=== PATIENT | female | born 1990 | race Caucasian/White ===

== ENCOUNTER 2020-08-05 14:00 | Outpatient (REF) | payer OTHER, SELFPAY ==
--- NOTE | 2020-08-05 | US_ITS ---
EXAMINATION: US OBSTETRICAL CLINICAL INFORMATION: 29-year-old at 20.0 weeks of gestation Suspected anomaly COMPARISON: 06/10/2020 TECHNIQUE: Real-time transabdominal ultrasound was performed using C1-5 megahertz transducer. FINDINGS: A single, active, fetus is seen in vertex presentation. The placenta is posterior without previa, and the amniotic fluid volume is wnl. MEASUREMENTS: 1. Biparietal Diameter: 4.4 cm; 19.3 wks 2. Occipital Frontal Diameter: 5.92 cm 3. Head Circumference: 17.4 cm; 20.0 wks 4. Abdominal Circumference: 16.0 cm; 21.2 wks 5. Femur Length: 3.4 cm; 20.5 wks 6. Humerus Length: 3.1 cm; 20.4 wks 7. Tibia Length: 3.01 cm; 21.1 wks 8. Ulna Length: 3.0 cm; the 1.2 wks 9. Lateral ventricle: 0.89 cm 10. Cerebellum: 1.91 cm; 19.5 wks 11. Cisterna Magna: 0.34 cm 12. Nuchal Fold: 3.32 mm 13. Heart Rate: 147 beats per minute Rt ovary: normal Lt ovary: normal Cervical length 4.9 cm on T/A. GESTATIONAL AGE: 1. Established GA: 20.0 wks 2. GA from COUNT INCLUDES THE [facility]: 20.3 wks ESTIMATED DATE OF DELIVERY: 1. Established EDEN: 12/23/2020 2. EDEN from COUNT INCLUDES THE [facility]: 12/20/2020 ANATOMY: The visualized anatomy includes but not limited to: 1. Cranium: Normal 2. Intracranial anatomy: Choroid plexus was suboptimally seen due to position. Cavum septum pellucidi, lateral ventricles, cerebellum, posterior fossa, third and fourth ventricles are within normal limits 3. face: Profile, nose/lips were limited due to position. Lips, orbits were within normal limits 4. Heart: Four-chamber view, ventricular septal evaluation, 3 vessel trachea inside this were suboptimal. LVOT, aortic and ductal arches as well as diaphragm were within normal limits.. 5. Diaphragm: Suboptimal 6. Abdominal wall: Normal 7. Cord Insertion: Normal 8. Spine: Distal sacral spine was suboptimally seen 9. Stomach: Normal size and shape 10. Right Kidney: Suboptimal 11. Left Kidney: Suboptimal 12. 3 vessel cord: Suboptimal 13. Upper extremity: Open hands, fifth digit. 14. Lower extremity: Tibia, fibula, bilateral feet. 15. Bladder: Normal 16. Genitalia: Male, patient aware IMPRESSION: 1. Single, living, intrauterine with appropriate biometry. 2. Limited anatomy due to position. However no abnormalities were seen in visualized anatomy. DISCUSSION: I reviewed today's ultrasound findings. We discussed the limitations of ultrasound in diagnosing aneuploidy and other congenital abnormalities. I reviewed the differences between screening test and diagnostic test. Amniocentesis was discussed and declined. She was informed that the baseline incidence of congenital abnormalities is approximately 3-5%. Not all these conditions are diagnosable in utero. RECOMMENDATIONS: 1. Follow-up in 2 weeks for growth and anatomy. Thank you for allowing me to participate in her care. Visiting time 15 minutes. Majority of this visit was spent reviewing and discussing her care.
== END 2020-08-05 14:01 | disposition home or self-care (01) ==
LOC: HO.US 14:00
PROVIDERS: PCP Pediatrics; Visit Provider Advanced Practice Midwife
DX: Z34.82 Encounter for supervision of other normal pregnancy, second trimester (principal)
CPT/HCPCS: 76811

== ENCOUNTER → 2020-08-11 09:22 | Outpatient (BNVA) | payer OTHER, SELFPAY | PROVIDERS: PCP Pediatrics; Referring Provider Pediatrics; Visit Provider Advanced Practice Midwife | DX: O99.891 Other specified diseases and conditions complicating pregnancy (principal); R82.71 Bacteriuria; O09.292 Supervision of pregnancy with other poor reproductive or obstetric history, second trimester; O34.219 Maternal care for unspecified type scar from previous cesarean delivery; Z3A.20 20 weeks gestation of pregnancy | CPT/HCPCS: 99212 ==

== ENCOUNTER 2020-08-19 13:29 | Outpatient (REF) | payer OTHER, SELFPAY ==
--- NOTE | 2020-08-19 13:42 | US_ITS ---
EXAMINATION: OBSTETRICAL ULTRASOUND, Follow up HISTORY: 29-year-old at 22.0 weeks of gestation Follow-up anatomy COMPARISON: 08/05/2020 TECHNIQUE: Real time transabdominal imaging with color and M-mode Doppler. PRESENTATION: Transverse PLACENTA LOCATION: Posterior AMNIOTIC FLUID: Normal MEASUREMENTS: 1. Biparietal Diameter: 5.11 cm; 21.4 wks 2. Head Circumference: 19.5 cm; 21.5 wks 3. Abdominal Circumference: 17.8 cm; 22.5 wks 4. Femur Length: 3.9 cm; 22.4 wks 5. Heart Rate: 155 beats per minute WEIGHT: Estimated weight is 507 grams (1 lbs 2 oz) -- 69 %. Normal views of choroids, lateral cerebral ventricle, profile, nose/lips, 4ch view, ventricular septum, LVOT, RVOT, situs, 3 vessel trachea view, bilateral kidneys, 3 vessel cord, abdominal CORD insertion, and spine. GESTATIONAL AGE: 1. Established GA: 22.0 wks 2. GA from AUA: 22.1 wks ESTIMATED DATE OF DELIVERY: 1. Established EDEN: 12/23/2020 2. EDEN from AUA: 12/22/2020 IMPRESSION: 1. A single fetus with appropriate interval growth. 2. Previously limited views of the anatomy were seen as listed above. No abnormalities were noted in visualized anatomy. 3. This completes the survey. I reviewed the limitations of ultrasound in diagnosing aneuploidy and other congenital abnormalities. Amniocentesis was again reviewed and she declined. She was informed that the baseline instance of congenital abnormalities and defects in the general population is approximately 3-5%. Not all these conditions are diagnosable in utero. RECOMMENDATIONS: 1. f/u PRN Thank you very much for this referral. Visiting time 15 minutes. Majority of this visit was spent reviewing the ultrasound findings as well as her care.
== END 2020-08-19 13:30 | disposition home or self-care (01) ==
LOC: HO.US 13:29
PROVIDERS: Visit Provider Advanced Practice Midwife
DX: Z34.80 Encounter for supervision of other normal pregnancy, unspecified trimester (principal)
CPT/HCPCS: 76816

== ENCOUNTER 2020-08-31 08:54 | Outpatient (REF) | payer OTHER, SELFPAY ==
[2020-08-31 09:17] LABS: COVID-19 Test Negative (Negative)
== END 2020-08-31 08:55 | disposition home or self-care (01) ==
LOC: HO.LAB 08:54
PROVIDERS: Visit Provider Internal Medicine
DX: Z20.828 Contact with and (suspected) exposure to other viral communicable diseases (principal)
CPT/HCPCS: 87635

== ENCOUNTER → 2020-09-05 09:51 | Outpatient (BNVA) | payer OTHER, SELFPAY | PROVIDERS: PCP Pediatrics; Visit Provider Advanced Practice Midwife | DX: O26.892 Other specified pregnancy related conditions, second trimester (principal); R51.9 Headache, unspecified; O09.292 Supervision of pregnancy with other poor reproductive or obstetric history, second trimester; O34.219 Maternal care for unspecified type scar from previous cesarean delivery; Z3A.24 24 weeks gestation of pregnancy; Z79.82 Long term (current) use of aspirin | CPT/HCPCS: 99212 ==

== ENCOUNTER 2020-09-28 06:34 | Outpatient (REF) | payer OTHER, SELFPAY ==
[2020-09-28 08:23] LABS: Hematocrit 37.3 % (37-47); Hemoglobin 12.2 g/dl (12.0-16.0); Mean Corpuscular HGB Conc 32.7 g/dl (31.0-35.0); Mean Corpuscular Hemoglobin 29.8 pg (27.0-33.0); Mean Corpuscular Volume 91.2 fL (80-98); Mean Platelet Volume 11.4 fL (9.4-12.3); Platelet Count 220 X10*3/uL (160-400); Red Blood Count 4.09 X10*6/uL (4.20-5.50); Red Cell Distribution Width 13.5 % (11.0-16.0); White Blood Count 10.4 X10*3/uL (4.8-10.8)
[2020-09-28 08:48] LABS: Glucose Fasting 84 mg/dL (60-99)
[2020-09-28 08:54] LABS: Alanine Aminotransferase 10 U/L (0-31); Aspartate Amino Transferase 9 U/L (5-31); Blood Urea Nitrogen 4 mg/dL (9-16)
[2020-09-28 09:04] LABS: HIV AB/AG Nonreactive (Nonreactive); HIV Num 1 0.15 S/CO (0.00-0.99)
[2020-09-28 09:06] LABS: Syphilis Screen Nonreactive (Nonreactive)
[2020-09-28 09:31] LABS: Glucose 1 Hour 146 mg/dL
[2020-09-28 09:41] LABS: Creatinine Urine 58.91 mg/dL; Total Protein Urine Random < 7 mg/dL (<12)
== END 2020-09-28 06:35 | disposition home or self-care (01) ==
LOC: HO.LAB 06:34
PROVIDERS: PCP Pediatrics; Visit Provider Advanced Practice Midwife
DX: O99.891 Other specified diseases and conditions complicating pregnancy (principal); R82.71 Bacteriuria; Z3A.00 Weeks of gestation of pregnancy not specified
CPT/HCPCS: 36415; 82951; 84156; 84450; 84460; 84520; 85027; 86780; 87086; 87389

== ENCOUNTER → 2020-10-04 10:45 | Outpatient (BNVA) | payer OTHER, SELFPAY | PROVIDERS: Visit Provider Obstetrics & Gynecology | DX: O09.623 Supervision of young multigravida, third trimester (principal); O09.299 Supervision of pregnancy with other poor reproductive or obstetric history, unspecified trimester; O99.810 Abnormal glucose complicating pregnancy | CPT/HCPCS: 90715; 99212 ==

== ENCOUNTER → 2020-10-31 13:37 | Outpatient (BNVA) | payer OTHER, SELFPAY | PROVIDERS: PCP Pediatrics; Visit Provider Advanced Practice Midwife | DX: O99.810 Abnormal glucose complicating pregnancy (principal); O09.299 Supervision of pregnancy with other poor reproductive or obstetric history, unspecified trimester | CPT/HCPCS: 81003; 99212 ==

== ENCOUNTER 2020-11-11 08:27 | Outpatient (REF) | payer OTHER, SELFPAY ==
--- NOTE | 2020-11-11 08:31 | US_ITS ---
EXAMINATION: OBSTETRICAL ULTRASOUND, Follow up HISTORY: 29-year-old at that 34.0 weeks of gestation GDM A1 Size date discrepancy High BMI History of section COMPARISON: 08/19/2020 TECHNIQUE: Real time transabdominal imaging with color and M-mode Doppler. PRESENTATION: Vertex PLACENTA LOCATION: Posterior without previa AMNIOTIC FLUID: PAMELA 22.5 MEASUREMENTS: 1. Biparietal Diameter: 8.1 cm; 32.5 wks 2. Head Circumference: 31.2 cm; 35.0 wks 3. Abdominal Circumference: 32.95 cm; 37.0 wks 4. Femur Length: 6.7 cm; 34.2 wks 5. Heart Rate: 163 beats per minute WEIGHT: EFW: 2707 grams (5 lbs 15 oz) -- 86 %. BIOPHYSICAL PROFILE: Motion: 2 Tone: 2 Breathin Amniotic Fluid: 2 Total score: 8/8 GESTATIONAL AGE: 1. Established GA: 34.0 wks 2. GA from A: 34.6 wks ESTIMATED DATE OF DELIVERY: 1. Established EDEN: 12/23/2020 2. EDEN from A: 12/17/2020 US/US OB follow up IMPRESSION: 1. A single active fetus is in vertex presentation 2. Size equals dates 3. Amniotic fluid volume is near the upper end of normal 4. Reassuring biophysical profile I informed the patient that the EFW corresponds to 86th percentile. While this is not predictive of macrosomia at term, the PAMELA of 22.5 is also at the upper limit of normal. She is currently on GDM diet. Reports that her fasting values are in the 80s. 2 hour postprandials are in the low 100s. She is scheduled for repeat section on 12/16/2020. I discussed with her the increased risk of hypoglycemia after delivery if her serum glucose control is suboptimal. Thank you very much for this referral. Visiting time 20 minutes. (4,10,6)
== END 2020-11-11 08:28 | disposition home or self-care (01) ==
LOC: HO.US 08:27
PROVIDERS: Visit Provider Obstetrics & Gynecology
DX: O09.299 Supervision of pregnancy with other poor reproductive or obstetric history, unspecified trimester (principal)
CPT/HCPCS: 76816

== ENCOUNTER 2020-11-18 08:55 | Outpatient (REF) | payer OTHER, SELFPAY ==
--- NOTE | 2020-11-18 08:58 | US_ITS ---
EXAMINATION: US OBSTETRICAL (BIOPHYSICAL PROFILE) CLINICAL INFORMATION: 29-year-old at the 35.0 weeks of gestation GDM A1 History of preeclampsia Labile blood pressure High BMI COMPARISON: 11/11/2020 TECHNIQUE: Biophysical profile is performed over 30 minutes with assessment of breathing, gross body movement, tone, and qualitative amniotic fluid volume. FINDINGS: POSITION: Vertex PLACENTA: Posterior without previa AMNIOTIC FLUID INDEX: 16.6 cm CARDIAC ACTIVITY: 146 beats per minute BIOPHYSICAL PROFILE: Motion: 2 Tone: 2 Breathin Amniotic Fluid: 2 The total biophysical score is 8/8 US/US OB limited IMPRESSION: 1. Single intrauterine gestation in vertex position. 2. Reassuring BPP and PAMELA BPP and PAMELA are within normal limits. She informs me that her glycemic control is within the target range on diet. The estimated weight last week was 5 lbs.15 oz. corresponding to 86th percentile. According to the patient, her blood pressure is borderline and is approaching 140/90. Addition there is small amount of protein in her urine. I informed her that if she meets the criteria for preeclampsia, delivery may be indicated. However if she has gestational hypertension only and her blood pressure can be managed, expectant management until 37 weeks is reasonable. Continue weekly BPP and NST 2 times per week. Thank you for allowing me to participate in her care. Total time: 30 minutes (8,15,7)
== END 2020-11-18 08:56 | disposition home or self-care (01) ==
LOC: HO.US 08:55
PROVIDERS: Visit Provider Obstetrics & Gynecology
DX: O99.810 Abnormal glucose complicating pregnancy (principal); O34.219 Maternal care for unspecified type scar from previous cesarean delivery; Z87.59 Personal history of other complications of pregnancy, childbirth and the puerperium; Z3A.35 35 weeks gestation of pregnancy
CPT/HCPCS: 76815; 81003; 99212

== ENCOUNTER 2020-11-25 10:31 | Outpatient (REF) | payer OTHER, SELFPAY ==
--- NOTE | 2020-11-25 10:36 | US_ITS ---
EXAMINATION: OBSTETRICAL ULTRASOUND, Follow up HISTORY: 29-year-old at the 36.0 weeks of gestation GDM A1 High BMI History of preeclampsia COMPARISON: 11/18/2020 TECHNIQUE: Real time transabdominal imaging with color and M-mode Doppler. PRESENTATION: Vertex PLACENTA LOCATION: Posterior AMNIOTIC FLUID: PAMELA 19.7 cm MEASUREMENTS: 1. Biparietal Diameter: 8.72 cm; 35.2 wks 2. Head Circumference: 32.43 cm; 36.5 wks 3. Abdominal Circumference: 32.6 cm; 36.4 wks 4. Femur Length: 7.3 cm; 37.4 wks 5. Heart Rate: 143 beats per minute WEIGHT: EFW: 2993 grams (6 lbs 10 oz) -- 69 %. BIOPHYSICAL PROFILE: Motion: 2 Tone: 2 Breathin Amniotic Fluid: 2 Total score: 8/8 GESTATIONAL AGE: 1. Established GA: 36.0 wks 2. GA from AUA: 36.4 wks ESTIMATED DATE OF DELIVERY: 1. Established EDEN: 12/23/2020 2. EDEN from AUA: 12/19/2020 US/US OB biophysical profile IMPRESSION: 1. The single active fetus is in vertex presentation 2. Size equals dates 3. Reassuring biophysical profile with normal amniotic fluid volume. I reviewed today's ultrasound findings and gave her reassurance. According to her, her fasting values are in the 80s. Majority of her postprandial values are within normal limits. States that her blood pressure this morning was 150 over a. Denies symptoms or signs of severe preeclampsia. She is to repeat her blood pressure later today. Gave her preeclampsia warnings She is scheduled for weekly follow-up. Thank you very much for this referral. Total time 30 (5,15,10) minutes.
[2020-11-25 16:47] LABS: MANUAL DIFF FLAG NO
[2020-11-25 16:51] LABS: Basophils Percent Auto 0.2 % (0-2); Eosinophils Absolute Auto 0.1 X10*3/uL (0.0-0.4); Eosinophils Percent Auto 0.7 % (0-4); Hemoglobin 12.3 g/dl (12.0-16.0); Imm Gran Abs Auto 0.05 X10*3/uL (0.00-0.03); Imm Gran Pct Auto 0.4 % (0.0-0.4); Lymphocytes Absolute Auto 2.2 X10*3/uL (1.2-4.9); Lymphocytes Percent Auto 19.9 % (20-40); Mean Corpuscular HGB Conc 32.4 g/dl (31.0-35.0); Mean Corpuscular Hemoglobin 29.6 pg (27.0-33.0); Mean Corpuscular Volume 91.3 fL (80-98); Mean Platelet Volume 11.7 fL (9.4-12.3); Monocytes Absolute Auto 1.2 X10*3/uL (0.1-1.2); Neutrophils Absolute Auto 7.6 X10*3/uL (2.0-8.3); Neutrophils Percent Auto 67.8 % (45-73); Platelet Count 195 X10*3/uL (160-400); Red Blood Count 4.16 X10*6/uL (4.20-5.50); Red Cell Distribution Width 13.4 % (11.0-16.0); White Blood Count 11.1 X10*3/uL (4.8-10.8)
[2020-11-25 17:11] LABS: Alanine Aminotransferase 10 U/L (0-31); Albumin Level 3.7 g/dL (3.5-5.0); Alkaline Phosphatase 84 U/L (39-117); Anion Gap 14 (12-20); Aspartate Amino Transferase 12 U/L (5-31); Bilirubin Total 0.3 mg/dL (0.0-1.0); Blood Urea Nitrogen 6 mg/dL (9-16); Calcium 8.9 mg/dL (8.4-10.2); Carbon Dioxide 20 mmol/L (22-29); Chloride 107 mmol/L (96-108); Estimated Glomerular Filt Rate > 60; Glucose Random 71 mg/dL (60-115); Potassium 4.1 mmol/l (3.3-5.1); Sodium 137 mmol/L (135-145); Total Protein 6.6 g/dL (6.5-8.0)
[2020-11-25 17:20] LABS: Creatinine Urine 128.65 mg/dL; Protein/Creatinine Ratio, Ur 0.09 (<0.2); Total Protein Urine Random 12 mg/dL (<12)
== END 2020-11-25 10:32 | disposition home or self-care (01) ==
LOC: HO.US 10:31
PROVIDERS: PCP Pediatrics; Visit Provider Obstetrics & Gynecology
DX: O99.810 Abnormal glucose complicating pregnancy (principal); O16.3 Unspecified maternal hypertension, third trimester; Z3A.36 36 weeks gestation of pregnancy; Z87.59 Personal history of other complications of pregnancy, childbirth and the puerperium
CPT/HCPCS: 36415; 59025; 76819; 80053; 81003; 84156; 85025; 99212

== ENCOUNTER → 2020-11-29 15:04 | Outpatient (BNVA) | payer OTHER, SELFPAY | PROVIDERS: PCP Pediatrics; Visit Provider Advanced Practice Midwife | DX: O09.623 Supervision of young multigravida, third trimester (principal) | CPT/HCPCS: 59025; 81003; 99212 ==

== ENCOUNTER → 2020-12-09 10:31 | Outpatient (BNVA) | payer OTHER, SELFPAY | PROVIDERS: Visit Provider Obstetrics & Gynecology ==

== ENCOUNTER 2021-01-13 10:24 | Outpatient (REF) | payer OTHER, SELFPAY ==
[2021-01-17 16:42] LABS: HPV mRNA E6/E7 rflx Not Detected (Not Detected)
== END 2021-01-13 10:25 | disposition home or self-care (01) ==
LOC: HO.LAB 10:24
PROVIDERS: Visit Provider Advanced Practice Midwife
DX: Z39.2 Encounter for routine postpartum follow-up (principal)
CPT/HCPCS: 36415; 87624; 88142

== ENCOUNTER → 2021-10-17 11:03 | Outpatient (BNVA) | payer OTHER, SELFPAY | PROVIDERS: PCP Pediatrics; Visit Provider Advanced Practice Midwife ==

== ENCOUNTER → 2021-10-24 15:43 | Outpatient (BNVA) | payer OTHER, SELFPAY | PROVIDERS: PCP Pediatrics; Visit Provider Obstetrics & Gynecology ==

== ENCOUNTER 2021-11-02 05:51 | Outpatient (REF) | payer OTHER, SELFPAY ==
[2021-11-02 06:23] LABS: COVID-19 Test Negative (Negative)
== END 2021-11-02 05:52 | disposition home or self-care (01) ==
LOC: HO.LAB 05:51
PROVIDERS: Visit Provider Internal Medicine
DX: Z20.822 Contact with and (suspected) exposure to COVID-19 (principal)
CPT/HCPCS: 36415; 87635

== ENCOUNTER → 2021-11-20 13:19 | Outpatient (BNVA) | payer OTHER, SELFPAY | PROVIDERS: PCP Pediatrics; Visit Provider Obstetrics & Gynecology | DX: Z30.430 Encounter for insertion of intrauterine contraceptive device (principal) | CPT/HCPCS: 58300 ==

== ENCOUNTER → 2022-01-03 09:38 | Outpatient (BNVA) | payer OTHER, SELFPAY | PROVIDERS: PCP Pediatrics; Visit Provider Obstetrics & Gynecology ==

== ENCOUNTER 2023-02-22 06:37 | Outpatient (REF) | payer OTHER, SELFPAY ==
--- NOTE | ~2023-02-22 | MM_ITS ---
EXAMINATION: MM DIAGNOSTIC DIGITAL BREAST TOMOSYNTHESIS, BILATERAL CLINICAL INFORMATION: Right breast pain. The lifetime risk of breast cancer based on the Tyrer-Cuzick Model is 24.3%. Additional annual screening with breast MRI may be of benefit in women with a Ely Score of 20% or greater. COMPARISON: Mammography: None. TECHNIQUE: Digital breast tomosynthesis is performed in both the craniocaudal and mediolateral oblique views along with computer-aided detection (CAD). Synthesized 2-D images are generated from the tomosynthesis. FINDINGS: The breasts are heterogeneously dense, which may obscure small masses (ACR BI-RADS breast composition Category c). About the right axilla, there is a density which margin is not well circumscribed approximately 15 cm from the nipple but which likely represents a lymph node. No spiculated mass or suspicious grouping of microcalcifications is identified. Targeted right breast ultrasound does not demonstrate any abnormal cystic or solid mass. No region of abnormal distal sound shadowing was appreciated. There are multiple non-enlarged axillary lymph nodes present with normal fatty clefts and no evidence of cortical thickening or lobulation. Results are discussed with the patient at time of visit. MM/MM tomosynthesis diagnostic BI IMPRESSION: No specific mammographic or right breast ultrasound findings to suggest malignancy. ASSESSMENT: BI-RADS 2: Benign. RECOMMENDATION: Routine annual mammography screening. Consideration of breast MRI. This patient's information was entered into a reminder system with a target due date for their next mammogram.
[2023-02-22 06:48] LABS: MANUAL DIFF FLAG NO
[2023-02-22 08:01] LABS: Basophils Percent Auto 0.7 % (0-2); Eosinophils Absolute Auto 0.2 X10*3/uL (0.0-0.4); Hemoglobin 14.1 g/dl (12.0-16.0); Imm Gran Abs Auto 0.02 X10*3/uL (0.00-0.03); Imm Gran Pct Auto 0.3 % (0.0-0.4); Lymphocytes Percent Auto 34.4 % (20-40); Mean Corpuscular HGB Conc 33.6 g/dl (31.0-35.0); Mean Corpuscular Volume 89.4 fL (80.0-98.0); Mean Platelet Volume 11.2 fL (9.4-12.3); Monocytes Absolute Auto 0.6 X10*3/uL (0.1-1.2); Monocytes Percent Auto 10.3 % (2-11); Neutrophils Percent Auto 51.3 % (45-73); Platelet Count 306 X10*3/uL (160-400); White Blood Count 5.8 X10*3/uL (4.8-10.8)
[2023-02-22 08:41] LABS: Alanine Aminotransferase 16 U/L (0-31); Albumin Level 4.5 g/dL (3.5-5.0); Alkaline Phosphatase 50 U/L (39-117); Anion Gap 12 (12-20); Aspartate Amino Transferase 13 U/L (5-31); Bilirubin Total 0.5 mg/dL (0.0-1.0); Blood Urea Nitrogen 8 mg/dL (9-16); Calcium 9.1 mg/dL (8.4-10.2); Carbon Dioxide 21 mmol/L (22-29); Chloride 111 mmol/L (96-108); Cholesterol 178 mg/dL; Estimated Glomerular Filt Rate > 60; Glucose Fasting 94 mg/dL (60-99); HDL Cholesterol 40 mg/dL; LDL Cholesterol Calculated 119 mg/dl; Potassium 4.3 mmol/L (3.3-5.1); Sodium 140 mmol/L (135-145); Triglycerides 95 mg/dL
[2023-02-22 08:59] LABS: Thyroid Stimulating Hormone 0.76 uIU/mL (0.32-4.0)
== END 2023-02-22 06:38 | disposition home or self-care (01) ==
LOC: HO.MAMMO 06:37
PROVIDERS: PCP Internal Medicine; Visit Provider Internal Medicine
DX: Z00.00 Encounter for general adult medical examination without abnormal findings (principal); N64.4 Mastodynia; I10 Essential (primary) hypertension
CPT/HCPCS: 36415; 76642; 77062; 77066; 80053; 80061; 84443; 85025

== ENCOUNTER 2024-03-17 09:14 | Outpatient (AMB) | payer OTHER, SELFPAY ==
--- NOTE | 2024-03-17 09:34 | AM.OFFWIN_ITS ---
Intake Vital Signs 03/17/24 09:36 Height 5 ft 4 in Weight 263 lb 6 oz BMI 45.2 BP 128/88 Blood Pressure Location Rt brachial Position Sitting Respiration 16 Pulse 67 Pulse Source Pulse Oximeter Temp 98.5 F Temp Source Oral Pulse Oximetry (%) 98 Oxygen Delivery Method Room Air Intake Visit Reasons: Strep throat Intake Note: Strep throat, both her kids tested positive Patient Tobacco Use Status: Never used Tobacco Is last menstrual period known: No Allergies No Known Allergies [No Known Allergies*] Allergy (Verified 03/17/24 10:07) Medication List - Last Reconciled 03/17/24 by Magdy Perez CNP norelgestromin-ethin.estradiol 150-35 mcg/24 hr (Xulane) 1 patch transdermal Q7D Do you need a note to return to daycare/school/sports/work: No HPI HPI Comments History of Present Illness Details 33-year-old female presents with complai nts of sore and swollen throat since last night. She has had intermittent productive cough with yellow phlegm for about a week. She notes that the sore throat is moderate. She has been taking Mucinex for the cough with some relief. Her children are currently ill with respiratory symptoms. She denies headache, nasal congestion, runny nose, chest pain, fever, chills, body aches, fatigue, weakness. [facility] Medical History History of gestational diabetes History of severe pre-eclampsia Morbid obesity with BMI of 40.0-44.9, adult Surgical History Hx of section Hx of cornea transplant Family History Paternal Grandfather HTN (hypertension) Diabetes mellitus Paternal Grandmother HTN (hypertension) Maternal Grandmother HTN (hypertension) Maternal Grandfather Diabetes mellitus Bladder cancer Mother Breast cancer HTN (hypertension) Father HTN (hypertension) Social History Alcohol intake: never Patient Tobacco Use Status: Never used Tobacco Gender identity: Female Female Reproductive History Menstrual Age of Menarche: 12 Review of Systems Const Details: Const Denies chills, Denies fatigue, Denies fever(s), Denies headache(s) and Denies weakness ENT Reports as per HPI Resp Reports cough, Denies dyspnea, Denies wheezing and Denies other (shortness of breath) Cardio Denies chest pain, Denies lightheadedness, Denies dyspnea and Denies other (palpitations) Neuro Denies dizziness, Denies headache(s), Denies numbness, Denies tingling and Denies weakness Psych Denies anxiety, Denies depression, Denies memory?loss Endo Denies fatigue Aller/Immun Denies wheezing Physical Exam Vital Signs: Last Vital Signs Temp 98.5 F 03/17/24 09:36 Pulse 67 03/17/24 09:36 Resp 16 03/17/24 09:36 BP 128/88 03/17/24 09:36 Pulse Ox 98 03/17/24 09:36 Oxygen Delivery Method Room Air 03/17/24 09:36 BMI result Body Mass Index 45.2 Const Other: Const General: well developed; No acute distress Nutritional Appearance: well nourished Orientation/consciousness: patient oriented x3 HEENT Head is normocephalic Bilateral ear canal and TM are normal Nasal turbinates are pink and moist Oropharynx with slight erythema, tonsils without swelling, patches, or exudates Sinuses are nontender with palpation No auricular or cervical lymphadenopathy Eyes General: appearance normal, both eyes and all related structures Pupils: Equal, round and reactive pupils present EOM: EOMs intact bilaterally Resp Effort & Inspection: normal respiratory effort Auscultation: clear to auscultation bilaterally Cardio Rate: regular rate Rhythm: regular rhythm Heart sounds: S1 normal heart sound present, S2 normal heart sound present, no gallops, no murmurs and no rubs Bruits: no abdominal aortic bruits and no carotid bruits Neuro General: patient oriented x3 and gait normal, no focal neuro deficit Cranial nerves: Yes Equal, round and reactive pupils present Psych Affect: normal affect Results AMB Rapid Strep AMB Rapid Strep Negative Last Edit by Jeannette Grover CMA on 03/17/24 10:1 4 Results Reviewed Results Reviewed: Laboratory Last Values Strep Scn [facility] Negative 03/17/24 10:12 Assessment & Plan Assessment & Plan (1) Acute viral pharyngitis: Code(s): J02.9 - Acute pharyngitis, unspecified Plan: Reports sore and swollen throat and intermittent productive cough with yellow phlegm Oropharynx with slight erythema, tonsils without swelling, patches, or exudates Sinuses and nontender to palpation Rapid strep is negative Viral illness There is no antibiotic medication for viruses.? They must run their course.? Most average 5-7 days but 7-10 days is not uncommon and up to 14 days is still possible.? A cough is often the last symptom to resolve and this can last for weeks in some cases. Rest Hydrate well -? Drink plenty of fluids.? Especially water. Tylenol or ibuprofen for muscle aches, headache, fever/discomfort Take benzonatate as prescribed Return for new or worsening symptoms Verbalized understanding and agreed with treatment plan. (2) Cough: Code(s): R05.9 - Cough, unspecified Plan: As above Orders: Orders AMB Rapid Strep Screen Today J02.9 - Acute pharyngitis, unspecified Medications: New benzonatate 200 mg PO BID PRN 20 caps 0RF cough Coding Level of Care Code New Pt Level 3 (62606) Diagnoses Acute viral pharyngitis J02.9 Cough R05.9
[2024-03-17 09:36] VITALS: BP 128/88; PULSE 67; RESP 16; TEMP 36.9; O2SAT 98; BMI 45.2
--- NOTE | 2024-03-17 09:39 | MHC.PC.OV ---
Vital Signs 03/17/24 09:36 Height 5 ft 4 in Weight 263 lb 6 oz BMI 45.2 BP 128/88 Blood Pressure Location Rt brachial Position Sitting Respiration 16 Pulse 67 Pulse Source Pulse Oximeter Temp 98.5 F Temp Source Oral Pulse Oximetry (%) 98 Oxygen Delivery Method Room Air Intake Visit Reasons: Strep throat Allergies No Known Allergies [No Known Allergies*] Allergy (Verified 03/17/24 10:07) Medication List - Last Reconciled 03/17/24 by Magdy Perez CNP norelgestromin-ethin.estradiol 150-35 mcg/24 hr (Xulane) 1 patch transdermal Q7D HPI HPI Comments History of Present Illness Details 33-year-old female presents with complaints of throat soreness and swelling which started last night. She has had intermittent productive cough with yellow phlegm for about a week. She reports mild sore throat. She has been taking Mucinex with some relief of her cough. She notes sick contacts at home. No headache, chest pain, nasal congestion, runny nose, fever, chills, body aches, fatigue, or weakness. [facility] Medical History History of gestational diabetes History of severe pre-eclampsia Morbid obesity with BMI of 40.0-44.9, adult Surgical History Hx of section Hx of cornea transplant Family History Paternal Grandfather HTN (hypertension) Diabetes mellitus Paternal Grandmother HTN (hypertension) Maternal Grandmother HTN (hypertension) Maternal Grandfather Diabetes mellitus Bladder cancer Mother Breast cancer HTN (hypertension) Father HTN (hypertension) Social History Alcohol intake: never Patient Tobacco Use Status: Never used Tobacco Gender identity: Female Female Reproductive History Menstrual Age of Menarche: 12 Review of Systems Const Details: Const Denies chills, Denies fatigue, Denies fever(s), Denies headache(s) and Denies weakness ENT Reports as per HPI Resp Reports cough, Denies dyspnea, Denies wheezing and Denies other (shortness of breath) Cardio Denies chest pain, Denies lightheadedness, Denies dyspnea and Denies other (palpitations) Neuro Denies dizziness, Denies headache(s), Denies numbness, Denies tingling and Denies weakness Psych Denies anxiety, Denies depression, Denies memory?loss Endo Denies fatigue Aller/Immun Denies wheezing Physical exam (Primary Care) Vital Signs: Last Vital Signs Temp 98.5 F 03/17/24 09:36 Pulse 67 03/17/24 09:36 Resp 16 03/17/24 09:36 BP 128/88 03/17/24 09:36 Pulse Ox 98 03/17/24 09:36 Oxygen Delivery Method Room Air 03/17/24 09:36 BMI result Body Mass Index 45.2 Tobacco/Smoking Status: Tobacco use Status Patient Tobacco Use Status Never used Tobacco 03/17/24 09:42 Const Other: Const General: well developed; No acute distress Nutritional Appearance: well nourished Orientation/consciousness: patient oriented x3 HEENT Head is normocephalic Bilateral ear canal and TM are normal Nasal turbinates are pink and moist Oropharynx is pink and moist, tonsils without swelling, patches, or exudates Sinuses are nontender with palpation No auricular or cervical lymphadenopathy Eyes General: appearance normal, both eyes and all related structures Pupils: Equal, round and reactive pupils present EOM: EOMs intact bilaterally Resp Effort & Inspection: normal respiratory effort Auscultation: clear to auscultation bilaterally Cardio Rate: regular rate Rhythm: regular rhythm Heart sounds: S1 normal heart sound present, S2 normal heart sound present, no gallops, no murmurs and no rubs Bruits: no abdominal aortic bruits and no carotid bruits Neuro General: patient oriented x3 and gait normal, no focal neuro deficit Cranial nerves: Yes Equal, round and reactive pupils present Psych Affect: normal affect Results AMB Rapid Strep AMB Rapid Strep Negative Last Edit by Jeannette Grover CMA on 03/17/24 10:14 Assessment and Plan Assessment & Plan (1) Acute viral pharyngitis: Code(s): J02.9 - Acute pharyngitis, unspecified Plan: Reports sore throat soreness and swelling, and yellow productive cough Oropharynx is pink and moist, tonsils without swelling, patches, or exudates. Nasal turbinates pink and moist. Sinuses and nontender to palpation Rapid strep test is negative Viral illness There is no antibiotic medication for viruses.? They must run their course.? Most average 5-7 days but 7-10 days is not uncommon and up to 14 days is still possible.? A cough is often the last symptom to resolve and this can last for weeks in some cases. Rest Hydrate well -? Drink plenty of fluids.? Especially water. Tylenol or ibuprofen for muscle aches, headache, fever/discomfort Take benzonatate as prescribed Return for new or worsening symptoms Verbalized understanding and agreed with treatment plan. (2) Cough: Code(s): R05.9 - Cough, unspecified Plan: As above Orders: Orders AMB Rapid Strep Screen Today J02.9 - Acute pharyngitis, unspecified Medications: New benzonatate 200 mg PO BID PRN 20 caps 0RF cough Coding Level of Care Code New Pt Level 3 (81792) Diagnoses Acute viral pharyngitis J02.9 Cough R05.9
== END 2024-03-17 10:38 | disposition home or self-care (01) ==
PROVIDERS: PCP Internal Medicine; Visit Provider Nurse Practitioner Family
DX: J02.9 Acute pharyngitis, unspecified (principal); R05.9 Cough, unspecified
CPT/HCPCS: 87880; 99203

== ENCOUNTER 2024-11-10 11:02 | Outpatient (REF) | payer OTHER, SELFPAY ==
[2024-11-11 03:16] LABS: CT PCR NOT DETECTED (Not Detect.); NG PCR NOT DETECTED (Not Detect.)
== END 2024-11-10 11:03 | disposition home or self-care (01) ==
LOC: HO.LNP 11:02
PROVIDERS: PCP Internal Medicine; Visit Provider Obstetrics & Gynecology
DX: Z30.431 Encounter for routine checking of intrauterine contraceptive device (principal); Z32.02 Encounter for pregnancy test, result negative
CPT/HCPCS: 81025; 87491; 87591

== ENCOUNTER 2024-11-10 11:02 | Outpatient (AMB) | payer OTHER, SELFPAY ==
[2024-11-10 11:03] VITALS: BP 116/70; BMI 36.0
--- NOTE | 2024-11-10 11:03 | A.OFFVIS_ITS ---
Vital Signs 11/10/24 11:03 Height 5 ft 4 in Weight 210 lb BMI 36.0 BP 116/70 Intake Visit Reasons: IUD Check Residential Life Director Required: No Information Interpreted: non-clinical & clinical Pre K Teacher: Pre K Teacher Present (Joleen WILCOXMartina) Accompanied by: Self / Same As Patient Allergies No Known Allergies [No Known Allergies*] Allergy (Verified 11/10/24 11:35) Is last menstrual period known: No (mirena) HPI Comments Details: Presenting for IUD check. The patient had IUD inserted 4 years ago with amenorrhea , however, over the last 3 months the patient started having regular menstrual cycles, no associated pelvic pain or other concerns. This coincided after 55 lb weight loss. Last co testing was in 01/22 was negative [facility] Medical History Morbid obesity with BMI of 40.0-44.9, adult History of gestational diabetes History of severe pre-eclampsia Surgical History Hx of cornea transplant Hx of section Family History Paternal Grandfather HTN (hypertension) Diabetes mellitus Paternal Grandmother HTN (hypertension) Maternal Grandmother HTN (hypertension) Maternal Grandfather Diabetes mellitus Bladder cancer Mother Breast cancer HTN (hypertension) Father HTN (hypertension) Social History Alcohol intake: never Patient Tobacco Use Status: Never used Tobacco Gender identity: Female Female Reproductive History Menstrual Age of Menarche: 12 Review of Systems Const All systems reviewed & are unremarkable except as noted in HPI and below Physical Exam Vital Signs: Last Vital Signs BP 116/70 11/10/24 11:03 BMI result Body Mass Index 36.0 General: Yes no CVA tenderness External Female Exam: normal external appearance and normal appearance of the urethra Speculum Exam - Vagina: normal appearance of the vagina, normal palpation, no lesions and no masses Speculum Exam - Cervix: normal appearance of the cervix, normal palpation, no lesions, no masses, nontender and Other cervical findings present (IUD thread seen in place) Bimanual exam- vagina & uterus: normal bimanual exam, normal palpation, uterine size normal, normal palpation, uterine shape normal, No Cervical tenderness present and non-tender Bimanual Exam- Adnexa, other: normal adnexae Back/Spine/Pelvis Back: no CVA tenderness Results AMB Test Urine AMB Test Urine Negative Last Edit by Joleen Hu CMA on 11:38 Results Reviewed Results Reviewed: Laboratory Last Values [facility]st Clinic Negative 11/10/24 11:37 Assessment & Plan Assessment & Plan (1) IUD check up: Code(s): Z30.431 - Encounter for routine checking of intrauterine contraceptive device Category: Medical Plan: UPT done in the office was negative, GC/CT collected. Will order pelvic ultrasound to document appropriate IUD position in utero. Instructions given the patient to schedule a 2 week ultrasound follow-up appointment. All questions answered, the patient verbalized understanding Orders: Orders AMB HCG Urine Test Today Z32.02 - Encounter for test, result negative US pelvic and transvaginal Today Z30.431 - Encounter for routine checking of intrauterine contraceptive device Coding Level of Care Code Est Pt Level 3 (50719) Diagnoses IUD check up Z30.431
== END 2024-11-10 11:47 | disposition home or self-care (01) ==
LOC: HO.HWS 11:02
PROVIDERS: PCP Internal Medicine; Visit Provider Obstetrics & Gynecology
DX: Z30.431 Encounter for routine checking of intrauterine contraceptive device (principal); Z32.02 Encounter for pregnancy test, result negative
CPT/HCPCS: 99213

== ENCOUNTER 2024-11-25 12:48 | Outpatient (REF) | payer OTHER, SELFPAY ==
--- NOTE | ~2024-11-25 | US_ITS ---
EXAMINATION: US PELVIS TRANSABDOMINAL AND TRANSVAGINAL HISTORY: Z30.431 - Encounter for routine checking of intrauterine contraceptive d... COMPARISON: There are no prior studies for comparison. TECHNIQUE: Transabdominal and endovaginal real-time 2D wooten-scale ultrasound was performed. Color Doppler was also performed. FINDINGS: Uterus: The uterus is normal in size, measuring 12.0 x 3.7 x 4.8 cm. Myometrium has a normal echotexture. No fibroids are identified. Endometrium: The endometrial stripe measures 4 mm in thickness. An IUD is noted in appropriate position. Right ovary: The right ovary is not identified. Left ovary: The left ovary measures 2.6 x 2.0 x 1.8 cm. Immediately adjacent to the ovary, there is a 1.2 x 1.4 x 1.3 cm hypoechoic structure which may represent an exophytic hemorrhagic cyst or follicle. Pelvic fluid: There is a small amount of fluid in the cul-de-sac.. US/US pelvic and transvaginal IMPRESSION: 1. IUD in appropriate position. 2. The right ovary is not identified. 1.2 x 1.4 x 1.3 cm hypoechoic structure adjacent to the left ovary may represent an exophytic hemorrhagic cyst or follicle. Follow-up is suggested. Electronically signed by: Michael Goldberg MD 11/26/2024 07:50 AM [facility]
--- OUTSIDE RECORDS SUMMARY | 2024-11-25 14:34 | XMS_ITS | Clinical Summary ---
Author Organization [facility] Address [address] [place] [address] Care Team Providers Care Air Intelligence Officer Name Role Phone Shannan Velásquez MD Primary Care Provider [phone] Surgical History Surgery Date Site/Laterality Comments FLEXIBLE SIGMOIDOSCOPY 11/16/13 PROCEDURE: [place] SIGMOIDOSCOPY FLX DX W/COLLJ SPEC BR/WA IF PFRMD; COMMENT: normal OTHER SURGICAL HISTORY PROCEDURE: ---- OTHER ----; COMMENT: to remove lost implananon OTHER SURGICAL HISTORY 07/2016 PROCEDURE: [place] EPIKERATOPLASTY SECTION PROCEDURE: HISTORICAL DELIVERY Medical History Medical History Date Comments Scoliosis (and kyphoscoliosi s), idiopathic DX:Scoliosis (and kyphoscoli osis), idiopathic Whooping cough, unspecified organism DX:Whooping cough, unspecified organism Keratoconus of both eyes DX:Pam toconus of both eyes; COMMENT: L>R Family History Medical History Relation Name Comments Hypertension Father Other: ca bladder Maternal Grandfather Diabetes Paternal Grandfather Other: back problems Paternal Grandmother Breast cancer Neg Hx Colon cancer Neg Hx Ovarian cancer Neg Hx Uterine cancer Neg Hx Relation Name Status Comments Brother 1 Alive 1985, HTN Brother 2 Alive 1988, HTN Father Alive hypertension Maternal Grandfather (Age 78) DM , CAD, bladder ca Maternal Grandmother Alive hyperte nsion Mother Alive hypertension Paternal Grandfather Alive type 2 diabetes Paternal Grandmother Alive Social History Tobacco Use Types Packs/Day Years Used Date Smoking Tobacco: Never Smokeless Tobacco: Never Alcohol Use Standard Drinks/Week Comments No 0 (1 standard drink = 0.6 oz pur e alcohol) Sex and Gender Information Value Date Recorded Sex Assigned at Female 11/11/2024 2:29 PM EST Gender Identity Female 11/11/2024 2:29 PM EST Sexual Orientation Straight 11/11/2024 2: 29 PM EST Obstetrics History Last Filed Vital Signs Vital Sign Reading Time Taken Comments Blood Pressure 128/88 11/22/2022 9:00 AM EST Pulse 80 11/22/2022 9:00 AM EST Temperature - - Respiratory Rate - - Oxygen Saturation - - Inhaled Oxygen Concentration - - Weight 120 kg (265 lb 3.2 oz) 11/22/2022 9:00 AM EST Height 162.6 cm (5' 4 ) 11/22/2022 9:00 AM EST Body Mass Index 45.52 11/22/2022 9:00 AM EST Plan of Treatment Health Maintenance Due Date Last Done Comments Cervical Cancer Screening: Pap Smear 2011 DTaP,Tdap,and Td Vaccines (7 - Td or Tdap) 11/23/2021 11/23/2011, 01/13/1996, 12/15/1992, Additional history exists Cholesterol Screening (Lipid Panel) 10/02/2022 Depression Screening 10/02/2022 HIV Screening 10/02/2022 Hepatitis C Screening 10/02/2022 Social Influencers of Health Screening 10/02/2022 Hypertension/CHF/CAD Annual BMP Blood Test 10/17/2022 COVID-19 Vaccine ( season) 2024 09/12/2021, 01/15/2021, 12/20/2020 Influenza Vaccine (#1) 2024 08/07/2012, 2010 HIB Vaccines Completed 03/17/1992, 06/04, 04/10/1991, Additional history exists IPV Vaccines Completed 01/13/1996, 12/05, 03/17/1992, Additional history exists MMR Vaccines Completed 01/13/1996, 03/17/1992 Hepatitis B Vaccines Completed 09/10/2000, 06/21/2000, 01/13/1996 HPV Vaccines Completed 01/13/2008, 07/2007, 07/14/2007 Hepatitis A Vaccines Aged Out No long er eligible based on patient's age to complete this topic Meningococcal ACWY Vaccine Aged Out N o longer eligible based on patient's age to complete this topic Pneumococcal Vaccine: Pediatrics (0 to 5 Years) and At-Risk Patients (6 to 64 Years) Aged Out No longer eligible based on patient's age to complete this topic RSV Immunization Patients Under 20 months Aged Out No longer eligible based on patient's age to complete this topic Varicella Vaccines Aged Out No longer eligible based on patient's age to complete this topic Care Teams Air Intelligence Officer Relationship Specialty Start Date End Date Shannan Velásquez MD [address] [place] [id number] PCP - General 11/09/22
== END 2024-11-25 12:49 | disposition home or self-care (01) ==
LOC: HO.US 12:48
PROVIDERS: PCP Pediatrics; Visit Provider Obstetrics & Gynecology
DX: Z30.431 Encounter for routine checking of intrauterine contraceptive device (principal)
CPT/HCPCS: 76830; 76856

== ENCOUNTER → 2024-11-25 12:50 | Outpatient (BNV) | payer OTHER, SELFPAY | PROVIDERS: PCP Pediatrics; Visit Provider Radiology Diagnostic Radiology | DX: Z30.431 Encounter for routine checking of intrauterine contraceptive device (principal) | CPT/HCPCS: 76830; 76856 ==

== ENCOUNTER 2024-12-30 12:36 | Outpatient (AMB) | payer OTHER, SELFPAY ==
--- NOTE | 2024-12-30 12:38 | A.OFFVIS_ITS ---
Intake Visit Reasons: Ultrasound follow up Photo Lab Technician: Photo Lab Technician Present (Laure) Accompanied by: Self / Same As Patient Allergies No Known Allergies [No Known Allergies*] Allergy (Verified 12/30/24 12:39) HPI Comments Details: Presenting for ultrasound follow-up which showed the following: IMPRESSION: 1. IUD in appropriate position. 2. The right ovary is not identified. 1.2 x 1.4 x 1.3 cm hypoechoic structure adjacent to the left ovary may represent an exophytic hemorrhagic cyst or follicle. Follow-up is suggested. [facility] Medical History Morbid obesity with BMI of 40.0-44.9, adult History of gestational diabetes History of severe pre-eclampsia Surgical History Hx of cornea transplant Hx of section Family History Paternal Grandfather HTN (hypertension) Diabetes mellitus Paternal Grandmother HTN (hypertension) Maternal Grandmother HTN (hypertension) Maternal Grandfather Diabetes mellitus Bladder cancer Mother Breast cancer HTN (hypertension) Father HTN (hypertension) Social History Alcohol intake: never Patient Tobacco Use Status: Never used Tobacco Gender identity: Female Female Reproductive History Menstrual Age of Menarche: 12 Review of Systems Const All systems reviewed & are unremarkable except as noted in HPI and below Reports as per HPI and Reports no additional complaints GI Reports no additional complaints Reports no additional complaints Assessment & Plan Assessment & Plan (1) Ovarian cyst: Code(s): N83.209 - Unspecified ovarian cyst, unspecified side Category: Medical Plan: Discussed with the patient the finding on pelvic ultrasound showing left ovarian cyst possible hemorrhagic versus follicle, will repeat ultrasound in 2 months. Instructions given the patient to call in case of pelvic pain or abnormal uterine bleeding and to schedule a 2 months ultrasound with a follow-up appointment. All questions answered, the patient verbalized understanding Orders: Orders US pelvic and transvaginal 2 Months N83.209 - Unspecified ovarian cyst, unspecified side Coding Level of Care Code Est Pt Level 3 (42092) Diagnoses Ovarian cyst N83.209
--- OUTSIDE RECORDS SUMMARY | 2024-12-30 15:21 | XMS_ITS | Clinical Summary ---
Author Organization [facility] Address [address] [place] [address] Care Team Providers Care Animal Park Code Enforcement Officer Name Role Phone Shannan Velásquez MD Primary Care Provider [phone] Surgical History Surgery Date Site/Laterality Comments FLEXIBLE SIGMOIDOSCOPY 11/16/13 PROCEDURE: [place] SIGMOIDOSCOPY FLX DX W/COLLJ SPEC BR/WA IF PFRMD; COMMENT: normal OTHER SURGICAL HISTORY PROCEDURE: ---- OTHER ----; COMMENT: to remove lost implananon OTHER SURGICAL HISTORY 07/2016 PROCEDURE: [place] EPIKERATOPLASTY SECTION PROCEDURE: HISTORICAL DELIVERY Medical History [...] drink = 0.6 oz pur e alcohol) Comments Unknown Sex and Gender Information Value Date Recorded Sex Assigned at Female 11/11/2024 2:29 PM EST Legal Sex Female 1:42 PM EST Gender Identity Female 11/11/2024 2:29 [...] patient's age to complete this topic Meningococcal B Vacine Aged Out No lo nger eligible based on patient's age to complete [...] age to complete this topic Care Teams Animal Park Code Enforcement Officer Relationship Specialty Start Date End Date Shannan Velásquez MD [address] [place] [id number] PCP - General 11/09/22
== END 2024-12-30 13:50 | disposition home or self-care (01) ==
PROVIDERS: PCP Internal Medicine; Visit Provider Obstetrics & Gynecology
DX: N83.209 Unspecified ovarian cyst, unspecified side (principal)
CPT/HCPCS: 99213

== ENCOUNTER → 2024-12-30 12:36 | Outpatient (BNVA) | payer OTHER, SELFPAY | PROVIDERS: PCP Internal Medicine; Visit Provider Obstetrics & Gynecology ==

== ENCOUNTER 2025-03-01 13:02 | Outpatient (REF) | payer OTHER, SELFPAY ==
--- NOTE | ~2025-03-01 | US_ITS ---
EXAMINATION: US PELVIS TRANSABDOMINAL AND TRANSVAGINAL HISTORY: N83.209 - Unspecified ovarian cyst, unspecified side COMPARISON: Comparison is made with the prior examination dated 11/25/2024. TECHNIQUE: Transabdominal and endovaginal real-time 2D wooten-scale ultrasound was performed. FINDINGS: Uterus: The uterus is normal in size, measuring 12.3 x 4.7 x 4.7 cm. Myometrium has a normal echotexture. No fibroids are identified. Endometrium: The endometrial stripe is not visualized due to the presence of an IUD in appropriate position. There are nabothian cysts in the cervix. Right ovary: The right ovary measures 2.5 x 2.2 x 2.0 cm. The right ovary is normal in size and echotexture. Left ovary: The left ovary measures 3.9 x 2.5 x 2.5 cm. There is a 1.5 x 1.7 x 1.6 cm follicle and a 1.4 x 1.9 x 1.5 cm cystic structure demonstrating low level internal echoes which likely represents a corpus luteum. Pelvic fluid: none. US/US pelvic and transvaginal IMPRESSION: 1. IUD in appropriate position in the endometrial cavity. 2. 1.7 cm left ovarian follicle. 1.9 cm probable corpus luteum in the left ovary. The previously seen left ovarian exophytic structure is no longer identified. Electronically signed by: Michael Goldberg MD 03/03/2025 11:40 AM EDT
--- OUTSIDE RECORDS SUMMARY | 2025-03-01 15:34 | XMS_ITS | Clinical Summary ---
Author Organization [facility] Address [address] [place] [address] Care Team Providers Care Member Of Parliament Name Role Phone Shannan Velásquez MD Primary Care Provider [phone] Surgical History Surgery Date Site/Laterality Comments FLEXIBLE SIGMOIDOSCOPY 11/16/13 PROCEDURE: [place] SIGMOIDOSCOPY FLX DX W/COLLJ SPEC BR/WA IF PFRMD; COMMENT: normal OTHER SURGICAL HISTORY PROCEDURE: ---- OTHER ----; COMMENT: to remove lost implananon OTHER SURGICAL HISTORY 07/2016 PROCEDURE: [place] EPIKERATOPLASTY SECTION PROCEDURE: HISTORICAL DELIVERY Medical History [...] season) 2024 09/12/2021, 01/15/2021, 12/20/2020 Influenza Vaccine (Season Ended) 2025 08/07/2012, 08/27/2011 HIB Vaccines Completed 03/17/1992, 06/04, 04/10/1991, Additional [...] age to complete this topic Meningococcal B Vaccine Aged Out No l onger eligible based on patient's age to complete [...] age to complete this topic Care Teams Member Of Parliament Relationship Specialty Start Date End Date Shannan Velásquez MD PCP - General 11/09/22
== END 2025-03-01 13:03 | disposition home or self-care (01) ==
LOC: HO.US 13:02
PROVIDERS: Visit Provider Obstetrics & Gynecology
DX: N83.209 Unspecified ovarian cyst, unspecified side (principal)
CPT/HCPCS: 76830; 76856

== ENCOUNTER → 2025-03-01 13:03 | Outpatient (BNV) | payer OTHER, SELFPAY | PROVIDERS: Visit Provider Radiology Diagnostic Radiology | DX: N83.02 Follicular cyst of left ovary (principal) | CPT/HCPCS: 76830; 76856 ==

== ENCOUNTER 2025-03-16 10:33 | Outpatient (AMB) | payer OTHER, SELFPAY ==
--- NOTE | 2025-03-16 10:47 | MHC.OFFVIS ---
Vital Signs 03/16/25 10:49 Height 5 ft 4 in Weight 210 lb BMI 36.0 Intake Visit Reasons: Ultrasound results Allergies No Known Allergies [No Known Allergies*] Allergy (Verified 12/30/24 12:39) HPI Comments Details: Presenting for ultrasound follow-up regarding complex left ovarian cyst seen on previous ultrasound done on 11/26/2024 03/01/2025 follow-up pelvic ultrasound showed the following: IMPRESSION: 1. IUD in appropriate position in the endometrial cavity. 2. 1.7 cm left ovarian follicle. 1.9 cm probable corpus luteum in the left ovary. The previously seen left ovarian exophytic structure is no longer identified. [facility] Medical History Morbid obesity with BMI of 40.0-44.9, adult History of gestational diabetes History of severe pre-eclampsia Surgical History Hx of cornea transplant Hx of section Family History Paternal Grandfather HTN (hypertension) Diabetes mellitus Paternal Grandmother HTN (hypertension) Maternal Grandmother HTN (hypertension) Maternal Grandfather Diabetes mellitus Bladder cancer Mother Breast cancer HTN (hypertension) Father HTN (hypertension) Social History Alcohol intake: never Patient Tobacco Use Status: Never used Tobacco Gender identity: Female Female Reproductive History Menstrual Age of Menarche: 12 Review of Systems Const All systems reviewed & are unremarkable except as noted in HPI and below Reports as per HPI and Reports no additional complaints GI Reports no additional complaints Reports no additional complaints Physical Exam Vital Signs: BMI result Body Mass Index 36.0 Assessment & Plan Assessment & Plan (1) Ovarian cyst: Code(s): N83.209 - Unspecified ovarian cyst, unspecified side Category: Medical Plan: Discussed with the patient ultrasound findings showing the previously identified complex cyst has resolved. The patient was instructed to call if symptoms recur. All questions were answered the patient verbalized understanding. (2) At high risk for breast cancer: Code(s): Z91.89 - Other specified personal risk factors, not elsewhere classified Category: Medical Plan: Discussed with the patient her increased risk for Breast ca. The lifetime risk of breast cancer based on the Tyrer-Cuzick Model is 24.3 % in 2022 Recommended: -Use different method of control other than Mirena IUD or control pills since there is an association with long-term use with an increase in the risk of breast cancer, the patient is considering vasectomy. Once completed the patient will call back for IUD removal in few months -Intensification of breast Cancer screening with annual MRI breast in addition to annual mammogram and MRI alternating every 6 months. Mammogram done recently , Breast MRI ordered -Will refer to Dr Zayas for possible Genetic Ca counseling and possible testing, in addition to counseling regarding Chemoprevention strategies All questions answered, the patient verbalized understanding and agreed with the plan Orders: Orders MR breast BI wo/w con Today Z80.3 - Family history of malignant neoplasm of breast MM tomosynthesis screening BI Today Z12.31 - Encounter for screening mammogram for malignant neoplasm of breast Referrals General Surgery Referral Z91.89 - Other specified personal risk factors, not elsewhere classified Coding Level of Care Code Est Pt Level 3 (17122) Diagnoses Ovarian cyst N83.209 At high risk for breast cancer Z91.89
[2025-03-16 10:49] VITALS: BMI 36.0
--- OUTSIDE RECORDS SUMMARY | 2025-03-16 11:43 | XMS_ITS | Clinical Summary ---
Author Organization [facility] Address [address] [place] [address] Care Team Providers Care Explosive Ordnance Handler Name Role Phone Shannan Velásquez MD Primary Care Provider [phone] Surgical History Surgery Date Site/Laterality Comments FLEXIBLE SIGMOIDOSCOPY 11/16/13 PROCEDURE: [place] SIGMOIDOSCOPY FLX DX W/COLLJ SPEC BR/WA IF PFRMD; COMMENT: normal OTHER SURGICAL HISTORY PROCEDURE: ---- OTHER ----; COMMENT: to remove lost implananon OTHER SURGICAL HISTORY 07/2016 PROCEDURE: [place] EPIKERATOPLASTY SECTION PROCEDURE: HISTORICAL DELIVERY Medical History [...] age to complete this topic Care Teams Explosive Ordnance Handler Relationship Specialty Start Date End Date Shannan Velásquez MD PCP - General 11/09/22
== END 2025-03-16 11:02 | disposition home or self-care (01) ==
LOC: HO.HWS 10:33
PROVIDERS: Visit Provider Obstetrics & Gynecology
DX: N83.209 Unspecified ovarian cyst, unspecified side (principal); Z91.89 Other specified personal risk factors, not elsewhere classified
CPT/HCPCS: 99213

== ENCOUNTER 2025-04-07 14:37 | Outpatient (REF) | payer OTHER, SELFPAY ==
--- OUTSIDE RECORDS SUMMARY | 2025-04-07 14:40 | XMS_ITS | Clinical Summary ---
Author Organization [facility] Address [address] [place] [address] Care Team Providers Care Maintenance Services Dispatcher Name Role Phone Shannan Velásquez MD Primary Care Provider [phone] Surgical History Surgery Date Site/Laterality Comments FLEXIBLE SIGMOIDOSCOPY 11/16/13 PROCEDURE: [place] SIGMOIDOSCOPY FLX DX W/COLLJ SPEC BR/WA IF PFRMD; COMMENT: normal OTHER SURGICAL HISTORY PROCEDURE: ---- OTHER ----; COMMENT: to remove lost implananon OTHER SURGICAL HISTORY 07/2016 PROCEDURE: [place] EPIKERATOPLASTY SECTION PROCEDURE: HISTORICAL DELIVERY Medical History [...] age to complete this topic Care Teams Maintenance Services Dispatcher Relationship Specialty Start Date End Date Shannan Velásquez MD PCP - General 11/09/22
== END 2025-04-07 14:38 | disposition home or self-care (01) ==
LOC: HO.MAMMO 14:37
PROVIDERS: Visit Provider Obstetrics & Gynecology
DX: Z12.31 Encounter for screening mammogram for malignant neoplasm of breast (principal)
CPT/HCPCS: 77063; 77067

== ENCOUNTER → 2025-04-07 14:45 | Outpatient (BNV) | payer OTHER, SELFPAY | PROVIDERS: Visit Provider Internal Medicine | DX: Z12.31 Encounter for screening mammogram for malignant neoplasm of breast (principal) | CPT/HCPCS: 77063; 77067 ==

== ENCOUNTER → 2025-04-15 15:41 | Outpatient (BNV) | payer OTHER, SELFPAY | PROVIDERS: Visit Provider Internal Medicine | DX: N63.10 Unspecified lump in the right breast, unspecified quadrant (principal) | CPT/HCPCS: 77049 ==

== ENCOUNTER 2025-04-15 15:44 | Outpatient (REF) | payer OTHER, SELFPAY ==
[2025-04-15] MEDS: gadobutroL 10 ML VIAL IVPUSH (16:49)
--- OUTSIDE RECORDS SUMMARY | 2025-04-15 18:06 | XMS_ITS | Clinical Summary ---
Author Organization [facility] Address [address] [place] [address] Care Team Providers Care Domestic Freight Forwarder Name Role Phone Shannan Velásquez MD Primary Care Provider [phone] Surgical History Surgery Date Site/Laterality Comments FLEXIBLE SIGMOIDOSCOPY 11/16/13 PROCEDURE: [place] SIGMOIDOSCOPY FLX DX W/COLLJ SPEC BR/WA IF PFRMD; COMMENT: normal OTHER SURGICAL HISTORY PROCEDURE: ---- OTHER ----; COMMENT: to remove lost implananon OTHER SURGICAL HISTORY 07/2016 PROCEDURE: [place] EPIKERATOPLASTY SECTION PROCEDURE: HISTORICAL DELIVERY Medical History [...] age to complete this topic Care Teams Domestic Freight Forwarder Relationship Specialty Start Date End Date Shannan Velásquez MD PCP - General 11/09/22
== END 2025-04-15 15:45 | disposition home or self-care (01) ==
LOC: HO.MRI 15:44
PROVIDERS: Visit Provider Obstetrics & Gynecology
DX: Z12.39 Encounter for other screening for malignant neoplasm of breast (principal); Z80.3 Family history of malignant neoplasm of breast
CPT/HCPCS: 77049; A9585

== ENCOUNTER 2025-04-20 10:17 | Outpatient (AMB) | payer OTHER, SELFPAY ==
--- NOTE | 2025-04-20 10:21 | A.OFFVIS_ITS ---
Vital Signs 04/20/25 10:28 Height 5 ft 4 in Weight 205 lb BMI 35.2 BP 130/89 Blood Pressure Location Rt brachial Position Sitting Pulse 73 Intake Visit Reasons: high risk for breast cancer Intake Note: Patient is seen in office for high risk of breast and and possible Genetic testing. Pt c/o: no concerns. Mother hx of breast CA. Diagnosed at 55yrs of age. 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 Her family history is significant for her mother developing stage III breast cancer the age of 55. She underwent lumpectomy with axillary node dissection and subsequently underwent chemotherapy, radiation therapy and is currently on letrozole 6 years postop. She denies any other family members with breast or ovarian cancer. Her maternal grandfather was diagnosed with bladder cancer. She denies any previous breast biopsies and never previously underwent genetic testing. She is unaware of any family members who underwent genetic testing. Her latest mammogram of 04/07/2025 revealed no mammographic evidence of malignancy (BI-RADS 1). Breast density score was C. MRI was performed on 04/15/2025, the results of which are not available at the time of this consultation. Menarche was at the age of 12. She is in her 1st child was born when she was 28 years old. She did not breastfeed her children. She has a Mirena in place and does not currently have a period. She denies any current breast symptoms of pain, redness, discharge, or palpable masses. Calculated Tyrer-Cuzick remaining lifetime risk of breast cancer: 22.5%. [facility] Medical History Morbid obesity with BMI of 40.0-44.9, adult History of gestational diabetes History of severe pre-eclampsia Surgical History Hx of cornea transplant Hx of section Family History Paternal Grandfather HTN (hypertension) Diabetes mellitus Paternal Grandmother HTN (hypertension) Maternal Grandmother HTN (hypertension) Maternal Grandfather Diabetes mellitus Bladder cancer Mother Breast cancer HTN (hypertension) Father HTN (hypertension) Social History Alcohol intake: never Patient Tobacco Use Status: Never used Tobacco Gender identity: Female Female Reproductive History Menstrual Age of Menarche: 12 Review of Systems Const All systems reviewed & are unremarkable except as noted in HPI and below Physical Exam Vital Signs: Last Vital Signs Pulse 73 04/20/25 10:28 BP 130/89 04/20/25 10:28 BMI result Body Mass Index 35.2 Const General: cooperative and no acute distress Nutritional Appearance: well nourished Orientation/consciousness: patient oriented x3 Limitations: no limitations HEENT Head: Yes normocephalic and Yes atraumatic Ears: hearing grossly normal bilaterally Chest Other: Left breast: No skin change, no nipple retraction, no nipple discharge, no palpable mass, no enlarged lymph nodes. Right breast: No skin change, no nipple retraction, no nipple discharge, no palpable mass, no enlarged lymph nodes Resp Effort & Inspection: normal respiratory effort, no audible wheezes, no cough and no respiratory distress Cardio Jugular venous distension: no JVD GI Inspection: Yes normal to inspection Skin Other: Warm, dry, no rash Neuro General: patient oriented x3 Extrem General: Yes no clubbing, cyanosis or edema Assessment & Plan Assessment & Plan (1) At high risk for breast cancer: Comment: Tyrer-Cuzick score 22.5% Code(s): Z91.89 - Other specified personal risk factors, not elsewhere classified Category: Medical (2) Family history of breast cancer: Code(s): Z80.3 - Family history of malignant neoplasm of breast Category: Medical Plan 34-year-old female patient presenting with a strong family history of breast cancer in her mother, determined to be at high risk for breast cancer. She has undergone mammogram and MRI screening. Examination today revealed no suspicious findings in either breast. We discussed genetic testing and reviewed the risks and benefits. She wishes to proceed with this testing today and will return approximately 6 weeks to review the results. She expressed understanding and agrees with the plan. Coding Level of Care Code New Pt Level 4 (60687) Diagnoses At high risk for breast cancer Z91.89 Family history of breast cancer Z80.3
[2025-04-20 10:28] VITALS: BP 130/89; PULSE 73; BMI 35.2
--- OUTSIDE RECORDS SUMMARY | 2025-04-20 11:47 | XMS_ITS | Clinical Summary ---
Author Organization [facility] Address [address] [place] [address] Care Team Providers Care Tape Keller Operator Name Role Phone Shannan Velásquez MD Primary Care Provider [phone] Surgical History Surgery Date Site/Laterality Comments FLEXIBLE SIGMOIDOSCOPY 11/16/13 PROCEDURE: UT SIGMOIDOSCOPY FLX DX W/COLLJ SPEC BR/WA IF PFRMD; COMMENT: normal OTHER SURGICAL HISTORY PROCEDURE: ---- OTHER ----; COMMENT: to remove lost implananon OTHER SURGICAL HISTORY 07/2016 PROCEDURE: UT EPIKERATOPLASTY SECTION PROCEDURE: HISTORICAL DELIVERY Medical History [...] age to complete this topic Care Teams Tape Keller Operator Relationship Specialty Start Date End Date Shannan Velásquez MD PCP - General 11/09/22
== END 2025-04-20 11:13 | disposition home or self-care (01) ==
LOC: HO.HGS 10:18
PROVIDERS: PCP Nurse Practitioner Family; Visit Provider Surgery
DX: Z91.89 Other specified personal risk factors, not elsewhere classified (principal); Z80.3 Family history of malignant neoplasm of breast
CPT/HCPCS: 99204

== ENCOUNTER → 2025-04-20 10:17 | Outpatient (BNVA) | payer OTHER, SELFPAY | PROVIDERS: PCP Nurse Practitioner Family; Visit Provider Surgery ==

== ENCOUNTER 2025-06-08 10:41 | Outpatient (AMB) | payer BC, SELFPAY ==
--- NOTE | 2025-06-08 10:44 | A.OFFVIS_ITS ---
Vital Signs 06/08/25 10:55 Height 5 ft 4 in Weight 159 lb BMI 27.3 BP 143/84 H Blood Pressure Location Lt brachial Position Sitting Pulse 70 Intake Visit Reasons: Genetic Testing Results Intake Note: Patient is seen in office for genetic testing results. Pt c/o: here for results, no concerns or changes Vice President Marketing & Development Required: No Accompanied by: Self / Same As Patient Allergies No Known Allergies (No Known Allergies*) Allergy (Verified 06/08/25 10:54) Medication List - Last Reconciled 06/08/25 by Moises Zayas MD semaglutide (Ozempic) 1 mg subcut QWEEK HPI Comments Details: 34-year-old female patient presenting for high-risk for breast cancer evaluation. Her family history is significant for her mother developing stage III breast cancer the age of 55. She underwent lumpectomy with axillary node dissection and subsequently underwent chemotherapy, radiation therapy and is currently on letrozole 6 years postop. She denies any other family members with breast or ovarian cancer. Her maternal grandfather was diagnosed with bladder cancer. She denies any previous breast biopsies and never previously underwent genetic testing. She is unaware of any family members who underwent genetic testing. Her latest mammogram of 04/07/2025 revealed no mammographic evidence of malignancy (BI-RADS 1). Breast density score was C. MRI was performed on 04/15/2025, the results of which are not available at the time of this consulta tion. Menarche was at the age of 12. She is in her 1st child was born when she was 28 years old. She did not breastfeed her children. She has a Mirena in place and does not currently have a period. She denies any current breast symptoms of pain, redness, discharge, or palpable masses. She underwent genetic testing on 04/20/2025. 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 To mutations within the gene 1 inherited from each parent, are required to increase a cancer risk. There are no known cancer risks associated with carrying a single gene mutation. The patient's breast cancer risk score was calculated at 20.2% and her Tyrer-Cuzick remaining lifetime risk of breast cancer calculated at 24.5%, both placing her at high risk for breast cancer based on family history. [facility] Medical History (Updated 06/08/25 @ 12:13 by Moises Zayas MD) Monoallelic mutation of MUTYH gene Morbid obesity with BMI of 40.0-44.9, adult History of gestational diabetes History of severe pre-eclampsia Surgical History Hx of cornea transplant Hx of section Family History Paternal Grandfather HTN (hypertension) Diabetes mellitus Paternal Grandmother HTN (hypertension) Maternal Grandmother HTN (hypertension) Maternal Grandfather Diabetes mellitus Bladder cancer Mother Breast cancer HTN (hypertension) Father HTN (hypertension) Social History Alcohol intake: never Patient Tobacco Use Status: Never used Tobacco Gender identity: Female Female Reproductive History Menstrual Age of Menarche: 12 Review of Systems Const All systems reviewed & are unremarkable except as noted in HPI and below Physical Exam Exam Exam: Exam deferred Vital Signs: Last Vital Signs Pulse 70 06/08/25 10:55 BP 143/84 H 06/08/25 10:55 BMI result Body Mass Index 27.3 Assessment & Plan Assessment & Plan (1) At high risk for breast cancer: Comment: Meenakshi-Aliceck score 24.5 % Code(s): Z91.89 - Other specified personal risk factors, not elsewhere classified Category: Medical (2) Monoallelic mutation of MUTYH gene: Code(s): Z15.89 - Genetic susceptibility to other disease Category: Medical (3) Family history of breast cancer: Code(s): Z80.3 - Family history of malignant neoplasm of breast Category: Medical Plan 34-year-old female patient with a first-degree relative (mother) with breast cancer returning to review the genetic testing results. Testing revealed an elevated breast cancer risk score of 20.2% in the Tyrer-Cuzick remaining lifetime risk of breast cancer of 24.5% placing her at high risk for breast cancer. She should continue with twice yearly clinical breast examinations, monthly self-examination, and yearly mammogram and breast MRIs alternating every 6 months. In addition because of the heterozygous mutation of MUTYH gene, other family members should consider being tested for possible biallelic mutation. Her mother will check with her oncologist at [facility] regarding genetic testing. I recommended follow-up examination in 6 months, sooner PRN. She should also begin colonoscopy screening at least by age 45. Coding Level of Care Code Est Pt Level 3 (17517) Diagnoses At high risk for breast cancer Z91.89 Monoallelic mutation of MUTYH gene Z15.89 Family history of breast cancer Z80.3
[2025-06-08 10:55] VITALS: BP 143/84; PULSE 70; BMI 27.3
--- OUTSIDE RECORDS SUMMARY | 2025-06-08 11:22 | XMS_ITS | Clinical Summary ---
Author Organization [facility] Address [address] [place] [address] Care Team Providers Care Project Manager Entertainment And Media Name Role Phone Shannan Velásquez MD Primary Care Provider [phone] Surgical History Surgery Date Site/Laterality Comments FLEXIBLE [...] history exists Cholesterol Screening (Lipid Panel) 10/02/2022 HIV Screening 10/02/2022 Hepatitis C Screening 10/02/2022 Social Influencers of Health Screening 10/02/2022 Hypertension/CHF/CAD Annual BMP Blood Test 10/17/2022 COVID-19 Vaccine ( season) 2024 09/12/2021, 01/15/2021, 12/20/2020 Depression Screening 11/04/2024 Influenza Vaccine (#1) 2025 08/07/2012, 2010 HIB Vaccines Completed 03/17/1992, 06/04, [...] 5 Years) and At-Risk Patients (6 to 49 Years) Aged Out No longer eligible based on patient's age to complete this topic RSV Immunization Patients Under 20 months Aged Out No longer eligible based on patient's age to complete this topic Varicella Vaccines Aged Out No longer eligible based on patient's age to complete this topic Care Teams Project Manager Entertainment And Media Relationship Specialty Start Date End Date Shannan Velásquez MD PCP - General 11/09/22
== END 2025-06-08 11:48 | disposition home or self-care (01) ==
LOC: HO.HGS 10:41
PROVIDERS: PCP Nurse Practitioner Family; Visit Provider Surgery
DX: Z91.89 Other specified personal risk factors, not elsewhere classified (principal); Z15.89 Genetic susceptibility to other disease; Z80.3 Family history of malignant neoplasm of breast
CPT/HCPCS: 99213

== ENCOUNTER → 2025-10-27 09:03 | Outpatient (BNV) | payer BC, SELFPAY | PROVIDERS: PCP Pediatrics; Visit Provider Internal Medicine | DX: N63.15 Unspecified lump in the right breast, overlapping quadrants (principal); Z80.3 Family history of malignant neoplasm of breast | CPT/HCPCS: 77049 ==

== ENCOUNTER 2025-10-27 09:14 | Outpatient (REF) | payer BC, SELFPAY ==
--- NOTE | ~2025-10-27 | MR_ITS ---
EXAMINATION: MR BREAST WITHOUT AND WITH CONTRAST, BILATERAL CLINICAL INFORMATION: 6 month follow-up breast MRI for a 6 x 3 mm oval enhancing mass in the upper central right breast on prior MRI April 2025. Strong family history of breast cancer. COMPARISON: Comparison is made with relevant prior imaging. TECHNIQUE: MR imaging of the breast was performed using T1, T2 and fat saturated techniques. Dynamic multiphase imaging was also performed after the administration of intravenous gadolinium contrast agent. Computer generated 3D reconstruction and enhancement kinetic analysis was ulitized by the radiologist in the interpretation of this examination. FINDINGS: Breast composition: Heterogeneous fibroglandular breast tissue Background parenchymal enhancement: Moderate LEFT BREAST: No suspicious enhancing masses or areas of non mass enhancement. No axillary or internal mammary adenopathy. RIGHT BREAST: Previously seen 6 x 3 mm oval enhancing mass in the upper central right breast anterior depth is not significantly changed from prior. (Series 1044 image 74/140.) No other suspicious enhancing masses or areas of non mass enhancement. No axillary or internal mammary adenopathy. Limited views of the chest and abdomen are unremarkable. MR/MR breast BI wo/w con IMPRESSION: Left: Negative. Right: 6 x 3 mm oval enhancing mass upper central right breast anterior depth not significantly changed from prior. Recommend 6 month follow-up MRI for further evaluation of stability. ASSESSMENT: LEFT BREAST: BI-RADS 1-Negative RIGHT BREAST: BI-RADS 3-Probably Benign RECOMMENDATIONS: Yearly screening mammography. 6 month follow-up MRI. Electronically signed by: Kristina Dobbs DO 10/29/2025 03:01 PM [facility]
== END 2025-10-27 09:15 | disposition home or self-care (01) ==
LOC: HO.MRI 09:14
PROVIDERS: PCP Pediatrics; Visit Provider Obstetrics & Gynecology
DX: R92.8 Other abnormal and inconclusive findings on diagnostic imaging of breast (principal); N64.89 Other specified disorders of breast
CPT/HCPCS: 77049; A9585